=== PATIENT | female | born 1995 | race Caucasian/White ===

== ENCOUNTER → 2019-11-26 | Outpatient (CLI) | payer OTHER ==
[~2019-11-26] MED LIST: IBUPROFEN 400400 M1 PO; NOHOMEMEDICATIONS
== END ==
LOC: LAB 08:07
PROVIDERS: ATTEND Family Medicine
DX: Z20.828 Contact with and (suspected) exposure to other viral communicable diseases (principal); R19.7 Diarrhea, unspecified; R11.10 Vomiting, unspecified; R50.9 Fever, unspecified

== ENCOUNTER → 2020-01-21 | Outpatient (CLI) | payer OTHER | LOC: LAB 12:42 | PROVIDERS: ATTEND Nurse Practitioner Family | DX: U07.1 COVID-19 (principal) ==